=== PATIENT | male | born 1970 | race American Indian/Alaskan Native ===

== ENCOUNTER 2022-03-25 21:36 | Emergency (ER) | payer SELFPAY ==
--- NOTE | 2022-03-26 07:27 | Emergency Department Report ---
ED Psych HPI - General Chief Complaint: Psych Stated Complaint: ALCOHOL/DRUG USE AND DEPRESSION Time Seen by Provider: 03/26/22 06:08 Source: patient Mode of arrival: Ambulatory - History of Present Illness Initial Comments: 51-year-old male with a history of sleep apnea, anxiety, depression, and substance abuse presents to the emergency department requesting help going into a rehab program. Patient states that he had been clean for 7 months, however a break-up has caused him to relapse. And patient has been using cocaine, marijuana, and alcohol for the past 3 days. Patient states that he last used tonight. Patient denies suicidal ideations, homicidal ideations, or jones llucinations, but does report depression. Patient also believes that he needs his antidepressant medication to help with his symptoms. Denies any other symptoms, currently. - Related Data Previous Rx's Medication Instructions Recorded Last Taken Type ARIPiprazole [Aripiprazole] 10 mg PO DAILY 30 Days #30 tab 03/26/22 Unknown Rx hydrOXYzine PAMOATE [Vistaril] 25 mg PO Q6HR PRN 30 Days #120 03/26/22 Unknown Rx capsule Allergies Allergy/AdvReac Type Severity Reaction Status Date / Time No Known Allergies Allergy Verified 03/25/22 21:50 ED Review of Systems ROS: Stated complaint: ALCOHOL/DRUG USE AND DEPRESSION Other details as noted in HPI Comment: All other systems reviewed and negative Constitutional: no symptoms reported. denies: chills, fever Eyes: denies: eye pain, eye discharge, vision change ENT: denies: ear pain, throat pain Respiratory: denies: cough, shortness of breath, wheezing Cardiovascular: denies: chest pain, palpitations Endocrine: no symptoms reported Gastrointestinal: denies: abdominal pain, nausea, diarrhea Genitourinary: denies: urgency, dysuria Musculoskeletal: denies: back pain, joint swelling, arthralgia Skin: denies: rash, lesions Neurological: denies: headache, weakness, paresthesias Psychiatric: depression, other (Substance abuse). denies: anxiety, auditory hallucinations, visual hallucinations, homicidal thoughts, suicidal thoughts Hematological/Lymphatic: denies: easy bleeding, easy bruising ED Past Medical Hx - Past Medical History Previous Medical History?: Yes Hx Hypertension: Yes (MEDICATED) Hx Psychiatric Treatment: Yes (DEPRESSION, ANXIETY) - Surgical History Past Surgical History?: No - Social History Smoking Status: Unknown if ever smoked - Medications Home Medications: Home Medications Medication Instructions Recorded Confirmed Last Taken Type ARIPiprazole [Aripiprazole] 10 mg PO DAILY 30 Days #30 tab 03/26/22 Unknown Rx hydrOXYzine PAMOATE [Vistaril] 25 mg PO Q6HR PRN 30 Days #120 03/26/22 Unknown Rx capsule ED Physical Exam - General Limitations: No Limitations General appearance: alert, in no apparent distress - Head Head exam: Present: atraumatic, normocephalic - Eye Eye exam: Present: normal appearance - ENT ENT exam: Present: mucous membranes moist - Neck Neck exam: Present: normal inspection - Respiratory Respiratory exam: Present: normal lung sounds bilaterally. Absent: respiratory distress - Cardiovascular Cardiovascular Exam: Present: regular rate, normal rhythm. Absent: systolic murmur, diastolic murmur, rubs, gallop - GI/Abdominal GI/Abdominal exam: Present: soft, normal bowel sounds - Rectal Rectal exam: Present: deferred - Extremities Exam Extremities exam: Present: normal inspection - Back Exam Back exam: Present: normal inspection - Neurological Exam Neurological exam: Present: alert, oriented X3 - Psychiatric Psychiatric exam: Present: normal affect, depressed. Absent: manic, homicidal ideation, suicidal ideation - Skin Skin exam: Present: warm, dry, intact, normal color. Absent: rash ED Course Vital Signs 03/25/22 03/26/22 03/26/22 21:45 05:58 09:19 Temperature 98.3 F 98.0 F 98.6 F Pulse Rate 91 H 70 85 Respiratory 20 18 20 Rate Blood Pressure 137/72 Blood Pressure 139/95 135/89 [Right] O2 Sat by Pulse 97 96 99 Oximetry - Reevaluation(s) Reevaluation #1: 03/26/22 09:12 According to nursing staff, patient is agitated, right now. Patient is still awaiting mental health evaluation, so I will order p.o. Ativan. ED Medical Decision Making - Lab Data Result diagrams: 03/26/22 07:43 03/26/22 07:43 - Medical Decision Making This is a 51-year-old male patient with history of COPD, anxiety, depression, and substance abuse who presents to the emergency department with depression after relapsing for cocaine and marijuana abuse over the past 3 days. Patient is requesting to be placed in a rehab program. Both vital signs and physical exam are reassuring. Lab work was unremarkable, and patient did not have any acute issues during this shift, except some anxiety over being here for a prolonged period of time. Patient was not placed on a 1013, as he was not suicidal, homicidal, or manic. At the time of my end of shift, patient was medically cleared, but patient had not completed being evaluated by mental health, Critical care attestation.: If time is entered above; I have spent that time in minutes in the direct care of this critically ill patient, excluding procedure time. ED Disposition Clinical Impression: Bipolar disorder Qualifiers: Active/Remission status: remission status unspecified Qualified Code(s): F31.9 - Bipolar disorder, unspecified Disposition: 01 HOME / SELF CARE / HOMELESS Is pt being admited?: No Condition: Stable Instructions: Managing Bipolar Disorder Prescriptions: ARIPiprazole [Aripiprazole] 10 mg PO DAILY 30 Days #30 tab hydrOXYzine PAMOATE [Vistaril] 25 mg PO Q6HR PRN 30 Days #120 capsule PRN Reason: Anxiety Referrals: PRIMARY CARE, [Primary Care Provider] - 3-5 Days
[2022-03-26 08:03] LABS: Basophils # (Auto) 0.1 K/mm3 (0.0-0.1); Basophils % (Auto) 0.7 % (0.0-1.8); Eosinophils # (Auto) 0.4 K/mm3 (0.0-0.4); Eosinophils % (Auto) 4.9 % (0.0-4.3); Hematocrit 42.9 % (35.5-45.6); Hemoglobin 14.3 gm/dl (11.8-15.2); Lymphocytes # (Auto) 2.9 K/mm3 (1.2-5.4); Lymphocytes % (Auto) 36.4 % (13.4-35.0); Mean Corpuscular HGB Conc 33 % (32-34); Mean Corpuscular Volume 92 fl (84-94); Monocytes % (Auto) 12.5 % (0.0-7.3); Platelet Count 205 K/mm3 (140-440); Red Blood Count 4.67 M/mm3 (3.65-5.03); Red Cell Distribution Width 13.9 % (13.2-15.2)
[2022-03-26 08:31] LABS: BUN/Creatinine Ratio 14; Blood Urea Nitrogen 17 mg/dL (9-20); Calcium 9.6 mg/dL (8.4-10.2); Hemolysis Index 15
[2022-03-26] MEDS ORDERED: LORazepam 1 MG TAB PO ONE (09:12)
[2022-03-26 09:27] VITALS: BP 135/89
--- NOTE | 2022-03-26 14:55 | Consultation ---
History of Present Illness - Reason for Consult Consult date: 03/26/22 Reason for consult: mental health evaluation - Chief Complaint Chief complaint: ALCOHOL/DRUG USE AND DEPRESSION - History of Present Psychiatric Illness ED Note: 51-year-old male with a history of sleep apnea, anxiety, depression, and substance abuse presents to the emergency department requesting help going into a rehab program. Patient states that he had been clean for 7 months, however a break-up has caused him to relapse. And patient has been using cocaine, marijuana, and alcohol for the past 3 days. Patient states that he last used tonight. Patient denies suicidal ideations, homicidal ideations, or hallucinations, but does report depression. Patient also believes that he needs his antidepressant medication to help with his symptoms. Denies any other symptoms, currently. Patient is a 51 year-old male with history of bipolar disorder, depression, anxiety, and substance abuse. Patient was seen today. Patient was initially sleeping face down, but responsive to voice. Patient did not turn to face interviewer but was alert and oriented x3 and cooperative throughout the interview. Patient reports he's here because "I had a meltdown," after his girlfriend broke up with him. Patient reports seeing a psychiatrist in an outpatient setting and reports being compliant with all medications until 3 days ago when ""I decided to go melt down and start drinking, smoking, taking the pain away with drugs and alcohol." Patient reports crack cocaine, marijuana, and alcohol use with last use last night. Patient reports previously being clean for 7 months. Patient denies history of suicide attempts and denies history of suicidal ideation. Patient denies SI HI and hallucinations at this time. Patient reports low mood in context of recent breakup and reports good social support from his friends who "told me to go to a program and go to the hospital to get help." PAST PSYCHIATRIC HISTORY Diagnoses: Bipolar disorder, depression, anxiety, and substance abuse Suicide attempts or Self-harm behavior: Denies Prior psychiatric hospitalizations: Denies Substance Abuse history: Crack cocaine, marijuana, alcohol Previous psychiatric medications tried: Abilifjohn martintaamirahl Outpatient treatment: Yes Family Psychiatric History: None reported SOCIAL HISTORY Marital Status: Single Living Arrangements: Alone Employment Status: Employed Access to guns/weapons: Denies Education: Some college History of Abuse: Denies Legal History: Denies REVIEW OF SYSTEMS Constitutional: Negative for weight loss ENT: Negative for stridor Respiratory: Negative for cough or hemoptysis All other systems reviewed and are negative MENTAL STATUS EXAMINATION General Appearance and Behavior: Age appropriate, wearing appropriate clothes, cooperative, polite with questioning, poor eye contact Cooperation: Cooperative Psychomotor Behavior: Psychomotor normal Mood: sad, irritable Affect and affective range: Congruent with stated mood Thought Process: intact, goal-oriented Thought Content: reality-based Speech: Normal volume, Regular rate and rhythm Suicidal Ideation: Denies Homicidal Ideation: Denies Hallucination: Denies Delusions: Denies Impulse Control: Limited Insight and Judgment: Good Memory: Intact Attention: Attentive Orientation: Alert and oriented x3 ASSESSMENT Alcohol use disorder Cocaine use disorder Cannabis use disorder Bereavement Bipolar disorder TREATMENT: - Refill medications: Abilify 10 mg qd Vistaril 25 mg q6h PRN for anxiety - Re-establish care at outpatient psychiatric program - Enroll in drug rehabilitation program Risks, benefits and alternatives of medications discussed with the patient, ques tions answered and consent obtained from patient. The patient should be compliant with medications, not to use drugs, and not to drink alcohol. The patient understands that if suicidal ideas, homicidal ideas or any endangering feeling arise, the patient should seek assistance including, but not limited to crisis hotline, and emergency room. PSYCHOTHERAPY: Supportive psychotherapy provided MEDICAL: Per primary team DELIRIUM PRECAUTIONS: Please re-orient patient frequently, keep lights on during the day, and minimize benzodiazepines and opiates as these medications could worsen patient's confusion. COPPER MINER: Defer to primary DISPOSITION: Do not recommend acute inpatient hospitalization at this time. Mental health seed trucker will provide outpatient psychiatric resources and information on drug rehabilitation programs. Patient interested in joining rehab at [facility] or [facility]. FOLLOW-UP: Will sign off. Thank you for the consult. Please contact with any questions and/or concerns. Case staffed with Dr. Bolivar Ocasio. Medications and Allergies Allergies Allergy/AdvReac Type Severity Reaction Status Date / Time No Known Allergies Allergy Verified 03/25/22 21:50 Home Medications Medication Instructions Recorded Confirmed Last Taken Type ARIPiprazole [Aripiprazole] 10 mg PO DAILY 30 Days #30 tab 03/26/22 Unknown Rx hydrOXYzine PAMOATE [Vistaril] 25 mg PO Q6HR PRN 30 Days #120 03/26/22 Unknown Rx capsule Mental Status Exam - Vital signs Last Vital Signs Temp 98.6 F 03/26/22 09:19 Pulse 85 03/26/22 09:19 Resp 20 03/26/22 09:19 BP 135/89 03/26/22 09:19 Pulse Ox 99 03/26/22 09:19 Results Result Diagrams: 03/26/22 07:43 03/26/22 07:43 Abnormal lab results 03/26/22 03/26/22 03/26/22 Range/Units 07:43 07:43 07:43 Lymph % (Auto) 36.4 H (13.4-35.0) % [place] % (Auto) 12.5 H (0.0-7.3) % Eos % (Auto) 4.9 H (0.0-4.3) % [place] # (Auto) 1.0 H (0.0-0.8) K/mm3 Glucose 111 H (75-100) mg/dL Salicylates < 0.3 L (2.8-20.0) mg/dL Acetaminophen (10.0-30.0) ug/mL 03/26/22 Range/Units 07:43 Lymph % (Auto) (13.4-35.0) % [place] % (Auto) (0.0-7.3) % Eos % (Auto) (0.0-4.3) % [place] # (Auto) (0.0-0.8) K/mm3 Glucose (75-100) mg/dL Salicylates (2.8-20.0) mg/dL Acetaminophen 5.0 L (10.0-30.0) ug/mL All other labs normal.
[2022-03-26] MEDS ORDERED: IBUPROFEN 800 MG TAB PO ONE (17:25)
--- NOTE | 2022-03-26 18:31 | Event Note ---
Date: 03/26/22 went to see patient as he refused discharge , saw him watching TV , he stated that the moment he will go out he will get his social disbility check and get cocaine discussed with him that he was assessed by psych and they referred him to OP rehab program , he refused that and he said that for 49 years he he never had OP program, pt seems manipulating to stay in [facility] , although he verbalizing risk, a agree with psych , that his risk is low and he is manipulating to stay inpatient ,
== END 2022-03-26 20:15 | disposition home or self-care (01) ==
LOC: ED 21:36
DX: F19.10 Other psychoactive substance abuse, uncomplicated (principal); G47.30 Sleep apnea, unspecified; F32.9 Major depressive disorder, single episode, unspecified; F14.90 Cocaine use, unspecified, uncomplicated; F12.90 Cannabis use, unspecified, uncomplicated; I10 Essential (primary) hypertension; F41.9 Anxiety disorder, unspecified; Z79.899 Other long term (current) drug therapy
CPT/HCPCS: 36415; 80048; 80320; 85025; 99284; G0480